=== PATIENT | female | born 1975 | race Caucasian/White ===

== ENCOUNTER → 2023-11-16 06:28 | Day surgery (SDC) | payer OTHER, SELFPAY | LOC: GI 06:28 | PROVIDERS: ATTENDING PHYSICIAN Internal Medicine | DX: Z12.11 Encounter for screening for malignant neoplasm of colon (principal); D12.2 Benign neoplasm of ascending colon; K64.9 Unspecified hemorrhoids | CPT/HCPCS: 45385; 88305 ==